=== PATIENT | male | born 1990 | race Caucasian/White ===

== ENCOUNTER 2023-01-04 13:10 | Inpatient (IN) | payer SELFPAY ==
[2023-01-04 13:17] VITALS: BP 160/100; BP 165/108; PULSE 71; PULSE 75; RESP 18; TEMP 36.3; O2SAT 99; BMI 32.5
[2023-01-04 13:54] LABS: MANUAL DIFF FLAG NO
[2023-01-04 13:57] LABS: Appearance Urine Clear; Color Urine Yellow; Glucose Urine UA Negative (Negative); Leukocyte Esterase Urine Negative (Negative); Nitrite Urine Negative (Negative); PH 6.5 (5.0-9.0); Urine Blood Negative (Negative); Urine Ketones Negative (Negative); Urine Protein Negative (Neg-Trace)
[2023-01-04 13:57] LABS: Basophils Absolute Auto 0.1 X10*3/uL (0.0-0.2); Basophils Percent Auto 0.8 % (0-2); Eosinophils Absolute Auto 0.1 X10*3/uL (0.0-0.4); Eosinophils Percent Auto 1.7 % (0-4); Hematocrit 45.9 % (42.0-52.0); Hemoglobin 15.5 g/dl (14.0-18.0); Imm Gran Abs Auto 0.02 X10*3/uL (0.00-0.03); Imm Gran Pct Auto 0.3 % (0.0-0.4); Lymphocytes Absolute Auto 1.4 X10*3/uL (1.2-4.9); Lymphocytes Percent Auto 21.8 % (20-40); Mean Corpuscular HGB Conc 33.8 g/dl (31.0-36.0); Mean Corpuscular Hemoglobin 29.7 pg (27.0-33.0); Mean Corpuscular Volume 87.9 fL (80.0-98.0); Mean Platelet Volume 9.9 fL (9.4-12.4); Monocytes Absolute Auto 0.6 X10*3/uL (0.1-1.2); Monocytes Percent Auto 9.1 % (2-11); Neutrophils Absolute Auto 4.2 x10*3/uL (2.0-8.3); Neutrophils Percent Auto 66.3 % (45-73); Platelet Count 229 X10*3/uL (160-400); Red Blood Count 5.22 X10*6/uL (4.60-5.80); White Blood Count 6.4 X10*3/uL (4.8-10.8)
[2023-01-04 14:00] LABS: Bacteria Urine None Seen (None Seen); Hyaline Casts Urine 0-2 /LPF (0-2); RBC Urine 0-2 /HPF (0-2); Squamous Epithelial Cell Urine 0-2 /HPF (0-2); WBC Urine 0-5 /HPF (0-5)
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
[2023-01-04 14:20] LABS: Amphetamine Screen Urine Not Detected (Not Detect); Barbiturates, Urine Not Detected (Not Detect); Benzodiazepines Screen Urine Not Detected (Not Detect); Cannabinoid Screen Urine POSITIVE (Not Detect); Cocaine Screen Urine Not Detected (Not Detect); Fentanyl, urine Not Detected (Not Detect); Opiate Screen Urine Not Detected (Not Detect); Phencyclidine Screen Urine Not Detected (Not Detect)
--- NOTE | 2023-01-04 15:30 | PC.NURSE ---
pt sleeping in room calmly with even respirations. no distress noted.
[2023-01-04 15:33] LABS: Alanine Aminotransferase 21 U/L (0-40); Albumin Level 4.6 g/dL (3.5-5.0); Alkaline Phosphatase 41 U/L (39-117); Anion Gap 14 (12-20); Aspartate Amino Transferase 21 U/L (5-37); Bilirubin Total 0.5 mg/dL (0.0-1.0); Blood Urea Nitrogen 12 mg/dL (9-16); Calcium 9.5 mg/dL (8.4-10.2); Carbon Dioxide 22 mmol/L (22-29); Chloride 108 mmol/L (96-108); Creatinine Clr Calc Pharmacy 171.1; Estimated Glomerular Filt Rate > 60; Ethanol < 10 mg/dL; Glucose Random 98 mg/dL (60-115); Potassium 4.1 mmol/L (3.3-5.1); Sodium 140 mmol/L (135-145); Total Protein 7.3 g/dL (6.5-8.0)
[2023-01-04 16:00] VITALS: RESP 18
[2023-01-04 17:35] VITALS: BP 135/71; PULSE 75; RESP 18; TEMP 36.6; O2SAT 98
[2023-01-04 18:22] LABS: COVID-19 Test Negative (Negative); IDNOW Serial# 9DB6401D
[2023-01-04 23:53] VITALS: BP 141/88; PULSE 74; RESP 18; TEMP 36.4; O2SAT 97
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
[2023-01-05 07:17] LABS: Cholesterol 153 mg/dL; HDL Cholesterol 33 mg/dL; LDL Cholesterol Calculated 93 mg/dl; Triglycerides 138 mg/dL
[2023-01-05 08:15] VITALS: BP 115/86; PULSE 59; RESP 18; TEMP 36.1; O2SAT 98
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
--- NOTE | 2023-01-05 15:23 | PC.NURSE ---
Elementary Classroom Teacher provider aware of patient urine culture, hospitalist PA looked at urine results stated no treatment needed, integration technician provider aware.
[2023-01-05 20:43] VITALS: BP 194/104; PULSE 62; RESP 18; TEMP 36.7; O2SAT 100
[2023-01-05 20:47] VITALS: BP 177/107
[2023-01-05] MEDS: Nicotine Polacrilex 2 MG GUM 4 MG BUCCAL (20:53)
[2023-01-05] MEDS: QUEtiapine Fumarate 100 MG TABLET PO (20:55)
[2023-01-05] MEDS: OXcarbazepine 300 MG TABLET PO (20:55)
[2023-01-05 21:29] VITALS: BP 156/105; PULSE 66
[2023-01-06 08:00] VITALS: BP 140/96; PULSE 59; RESP 16; TEMP 36.2; O2SAT 98
[2023-01-06] MEDS: Nicotine Polacrilex 2 MG GUM 4 MG BUCCAL ×5 (08:29→20:06)
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
[2023-01-06] MEDS: lisinopriL 10 MG TABLET PO (09:39)
[2023-01-06 12:29] VITALS: BP 160/88; PULSE 75; RESP 16; TEMP 36.4; O2SAT 97
[2023-01-06] MEDS: Milk of Magnesia 30 ML ORAL.SUSP PO (13:44)
[2023-01-06 16:00] VITALS: BP 129/89; PULSE 70; RESP 18; TEMP 36.6; O2SAT 100
[2023-01-06 20:00] VITALS: BP 146/82; PULSE 60; RESP 18; TEMP 36.6; O2SAT 97
[2023-01-06] MEDS: OXcarbazepine 300 MG TABLET 600 MG PO (20:06)
[2023-01-07] MEDS: hydrOXYzine HCL 25 MG TABLET PO (00:50)
[2023-01-07] MEDS: traZODone HCL 50 MG TABLET PO (00:50)
[2023-01-07 08:15] VITALS: BP 124/70; PULSE 67; RESP 18; TEMP 36.8; O2SAT 98
[2023-01-07] MEDS: lisinopriL 10 MG TABLET PO (08:48)
[2023-01-07] MEDS: Nicotine Polacrilex 2 MG GUM 4 MG BUCCAL ×5 (09:24→19:59)
--- NOTE | 2023-01-07 13:22 | HO.PSYCHPN ---
Subjective Subjective Date of Service: 01/07/23 Reason For Visit: Depression/ bipolar Interim History: discuss bipolar Sx in this patient as well as his FH of the same. taking trileptal 600 mg at HS. seems to be in a good humor, pleasant and polite. states he had difficulty sleeping last night. broaches his anger/irritability, agrees to trial of seroquel 50 QHS with PRN as well. per staff, moderate anxiety. sleeping well. meds and meals compliant. no SI/AVH. anx/dep 08/10. looking forward to discharge. Mental Status Exam Mental Status Exam Narrative: In today's visit he is alert, oriented and pleasant. He was in street clothes. Speech is normal. Good eye contact. Affect is appropriate and varied. No overt signs of euphoria. No signs of psychosis. He does have some insight in to his current presentation and recent history. He denies any active suicidal or homicidal ideations expressed. Cognitively he is intact and above average intelligence. Judgment is intact. No abnormalities of gait. No musculoskeletal problems. Diagnostics Vital Signs (24Hr): Vital Signs - 24 hr 01/06/23 16:00 01/06/23 20:00 01/07/23 08:15 Temperature 97.8 F 97.8 F 98.3 F Pulse Rate 70 60 67 Respiratory Rate 18 18 18 Blood Pressure 129/89 146/82 H 124/70 Pulse Oximetry 100 97 98 Oxygen Delivery Method Room Air Room Air Room Air BMI result Body Mass Index 32.5 Labs 01/04/23 13:48 01/04/23 13:49 Medications Medications Current Medications Acetaminophen (Acetaminophen 325 Mg Tablet) 650 mg PO Q6H PRN PRN Reason: Headache/Pain Mild Scale (1-3) Al Hydroxide/Mg Hydroxide (Magnesium Hydrox/Alum Hydrox 30 Ml Oral.Susp) 30 ml PO Q6H PRN PRN Reason: Heartburn/Nausea Hydroxyzine HCl (Hydroxyzine Hcl 25 Mg Tablet) 25 mg PO Q6H PRN PRN Reason: Anxiety Last Admin: 01/07/23 00:50 Dose: 25 mg Lisinopril (Lisinopril 10 Mg Tablet) 10 mg PO DAILY SAJAN; Protocol Last Admin: 01/07/23 08:48 Dose: 10 mg Magnesium Hydroxide (Milk Of Magnesia 30 Ml Oral.Susp) 30 ml PO DAILY PRN PRN Reason: Constipation Last Admin: 01/06/23 13:44 Dose: 30 ml Nicotine Polacrilex (Nicotine Polacrilex 2 Mg Gum) 4 mg BUCCAL Q2H PRN PRN Reason: Nicotine Cravings Last Admin: 01/07/23 12:17 Dose: 4 mg Oxcarbazepine (Oxcarbazepine 300 Mg Tablet) 600 mg PO BEDTIME SAJAN Last Admin: 01/06/23 20:06 Dose: 600 mg Quetiapine Fumarate (Quetiapine Fumarate 25 Mg Tablet) 25 mg PO Q4H PRN PRN Reason: Anxiety Quetiapine Fumarate (Quetiapine Fumarate 50 Mg Tablet) 50 mg PO BEDTIME PRN PRN Reason: insomnia Quetiapine Fumarate (Quetiapine Fumarate 50 Mg Tablet) 50 mg PO BEDTIME SAJAN Allergies Allergies Allergy/AdvReac Type Severity Reaction Status Date / Time Cephalosporins Allergy Rash Verified 01/04/23 19:14 Assessment & Plan Assessment & Plan (1) Bipolar 1 disorder with moderate edith: Status: Acute Code(s): F31.12 - Bipolar disorder, current episode manic without psychotic features, moderate Plan 01/05: Beto exhibits history of and recent presentation, indicative of hypomania. We had a long discussion about medication use, mood stabilizer and he is open to it but would like to talk to his mother, brother and father about their history of medications. We will reviewed this later today or tomorrow. He meets criteria for hospital level of care for safety and treatment. started trileptal 300 mg QHS. 01/06: Increased Trileptal to 600 QHS, added lisinopril for HTN. 01/07: scheduled seroquel 50 QHS with repeat PRN for anger/irritability, insomnia. appears in a good humor. discussed discharge for later this week. Reason for continued inpatient stay Substantial Risk for: rapid decompensation Time Spent With Patient Time: Total time managing care of this patient today __25__ minutes.
[2023-01-07 14:23] VITALS: BP 165/111; PULSE 67; RESP 18
[2023-01-07] MEDS: cloNIDine HCL 0.1 MG TABLET PO (14:36)
[2023-01-07 16:00] VITALS: BP 144/96; PULSE 77; RESP 18
[2023-01-07 19:40] VITALS: BP 141/88; PULSE 86; RESP 16; TEMP 36.2; O2SAT 97
[2023-01-07 20:00] VITALS: BP 139/88; PULSE 90; RESP 18; TEMP 36.4; O2SAT 100
[2023-01-07] MEDS: OXcarbazepine 300 MG TABLET 600 MG PO (21:00)
[2023-01-07] MEDS: QUEtiapine Fumarate 50 MG TABLET PO (21:00)
[2023-01-08] MEDS: Nicotine Polacrilex 2 MG GUM 4 MG BUCCAL ×7 (07:27→21:01)
[2023-01-08 08:00] VITALS: BP 162/99; PULSE 81; RESP 20; TEMP 36.4; O2SAT 99
[2023-01-08] MEDS: lisinopriL 20 MG TABLET PO (08:46)
[2023-01-08 12:00] VITALS: BP 137/92; PULSE 97; RESP 18; O2SAT 97
--- NOTE | 2023-01-08 14:21 | P.PNPSI_ITS ---
Subjective Subjective Date of Service: 01/08/23 Reason For Visit: Depression/ bipolar Interim History: slept well last night. BP remains elevated, discussed use of clonidine PRN. feels he is approaching discharge. per staff, mild anxiety. no SI/HI. med- compliant. calm, cooperative. slept well. Mental Status Exam Mental Status Exam Narrative: In today's visit he is alert, oriented and pleasant. He was in street clothes. Speech is normal. Good eye contact. Affect is appropriate and varied. No overt signs of euphoria. No signs of psychosis. He does have some insight in to his current presentation and recent history. no suicidal or homicidal ideations expressed. Cognitively he is intact and above average intelligence. Judgment is intact. No abnormalities of gait. No musculoskeletal problems. Diagnostics Vital Signs (24Hr): Vital Signs - 24 hr 01/07/23 14:23 01/07/23 16:00 01/07/23 19:40 Temperature 97.2 F Pulse Rate 67 77 86 Respiratory Rate 18 18 16 Blood Pressure 165/111 H 144/96 H 141/88 H Pulse Oximetry 97 Oxygen Delivery Method Room Air 01/07/23 20:00 01/08/23 08:00 01/08/23 12:00 Temperature 97.6 F 97.6 F Pulse Rate 90 81 97 Respiratory Rate 18 20 18 Blood Pressure 139/88 162/99 H 137/92 H Pulse Oximetry 100 99 97 Oxygen Delivery Method Room Air Room Air Room Air BMI result Body Mass Index 32.5 Labs 01/04/23 13:48 01/04/23 13:49 Medications Medications Current Medications Acetaminophen (Acetaminophen 325 Mg Tablet) 650 mg PO Q6H PRN PRN Reason: Headache/Pain Mild Scale (1-3) Al Hydroxide/Mg Hydroxide (Magnesium Hydrox/Alum Hydrox 30 Ml Oral.Susp) 30 ml PO Q6H PRN PRN Reason: Heartburn/Nausea Clonidine HCl (Clonidine Hcl 0.1 Mg Tablet) 0.1 mg PO Q2H PRN; Protocol PRN Reason: SBP > 150 or DBP > 90 Last Admin: 01/07/23 14:36 Dose: 0.1 mg Hydroxyzine HCl (Hydroxyzine Hcl 25 Mg Tablet) 25 mg PO Q6H PRN PRN Reason: Anxiety Last Admin: 01/07/23 00:50 Dose: 25 mg Lisinopril (Lisinopril 20 Mg Tablet) 20 mg PO DAILY SAJAN; Protocol Last Admin: 01/08/23 08:46 Dose: 20 mg Magnesium Hydroxide (Milk Of Magnesia 30 Ml Oral.Susp) 30 ml PO DAILY PRN PRN Reason: Constipation Last Admin: 01/06/23 13:44 Dose: 30 ml Nicotine Polacrilex (Nicotine Polacrilex 2 Mg Gum) 4 mg BUCCAL Q2H PRN PRN Reason: Nicotine Cravings Last Admin: 01/08/23 12:06 Dose: 4 mg Oxcarbazepine (Oxcarbazepine 300 Mg Tablet) 600 mg PO BEDTIME SAJAN Last Admin: 01/07/23 21:00 Dose: 600 mg Quetiapine Fumarate (Quetiapine Fumarate 25 Mg Tablet) 25 mg PO Q4H PRN PRN Reason: Anxiety Quetiapine Fumarate (Quetiapine Fumarate 50 Mg Tablet) 50 mg PO BEDTIME PRN PRN Reason: insomnia Quetiapine Fumarate (Quetiapine Fumarate 50 Mg Tablet) 50 mg PO BEDTIME SAJAN Last Admin: 01/07/23 21:00 Dose: 50 mg Allergies Allergies Allergy/AdvReac Type Severity Reaction Status Date / Time Cephalosporins Allergy Rash Verified 01/04/23 19:14 Assessment & Plan Assessment & Plan (1) Bipolar 1 disorder with moderate edith: Status: Acute Code(s): F31.12 - Bipolar disorder, current episode manic without psychotic features, moderate Plan 01/05: Beto exhibits history of and recent presentation, indicative of hypomania. We had a long discussion about medication use, mood stabilizer and he is open to it but would like to talk to his mother, brother and father about their history of medications. We will reviewed this later today or tomorrow. He meets criteria for hospital level of care for safety and treatment. started trileptal 300 mg QHS. 01/06: Increased Trileptal to 600 QHS, added lisinopril for HTN. 01/07: scheduled seroquel 50 QHS with repeat PRN for anger/irritability, insomnia. appears in a good humor. discussed discharge for later this week. 01/08: lisinopril increased to 20 mg yesterday. clonidine PRN HTN. otherwise continue current mgmt. planning for discharge or saturday. Reason for continued inpatient stay Substantial Risk for: inability to function and rapid decompensation Time Spent With Patient Time: Total time managing care of this patient today __25__ minutes.
[2023-01-08 16:00] VITALS: BP 149/100; PULSE 82; RESP 20; O2SAT 97
[2023-01-08] MEDS: hydrOXYzine HCL 25 MG TABLET PO (17:11)
[2023-01-08] MEDS: cloNIDine HCL 0.1 MG TABLET PO (17:11)
[2023-01-08 18:21] VITALS: BP 149/93; PULSE 85; RESP 20; O2SAT 98
[2023-01-08] MEDS: OXcarbazepine 300 MG TABLET 600 MG PO (20:55)
[2023-01-08] MEDS: QUEtiapine Fumarate 50 MG TABLET PO (20:56)
[2023-01-08 21:12] VITALS: BP 136/87; PULSE 78; RESP 18; TEMP 36.4; O2SAT 97
[2023-01-09 08:43] VITALS: BP 145/94; PULSE 76; RESP 18; TEMP 36.5; O2SAT 98
[2023-01-09] MEDS: lisinopriL 20 MG TABLET PO (08:44)
[2023-01-09] MEDS: Nicotine Polacrilex 2 MG GUM 4 MG BUCCAL ×2 (08:49→12:14)
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
== END 2023-01-09 14:10 | disposition home or self-care (01) | DRG 885 ==
LOC: HO.ED 16:18 → HO.PADLT16 22:31
PROVIDERS: Admitting Provider Clinical Nurse Specialist Psychiatric/Mental Health, Adult; Emergency Provider Emergency Medicine; Visit Provider Psychiatry & Neurology Psychiatry
DX: F31.12 Bipolar disorder, current episode manic without psychotic features, moderate (principal); R45.851 Suicidal ideations; F10.11 Alcohol abuse, in remission; Z20.822 Contact with and (suspected) exposure to COVID-19; Z79.899 Other long term (current) drug therapy
CPT/HCPCS: 36415; 80053; 80061; 80307; 81001; 85025; 87086; 87147; 87635; 99285

== ENCOUNTER → 2023-01-04 22:23 | Outpatient (BNV) | payer SELFPAY | PROVIDERS: Admitting Provider Clinical Nurse Specialist Psychiatric/Mental Health, Adult; Emergency Provider Emergency Medicine; Visit Provider Psychiatry & Neurology Psychiatry | DX: F31.12 Bipolar disorder, current episode manic without psychotic features, moderate (principal) | CPT/HCPCS: 90792; 99231; 99232; 99239 ==